=== PATIENT | male | born 1970 | race Caucasian/White ===

== ENCOUNTER → 2016-12-24 | Outpatient (CLI) | payer OTHER | END | disposition home or self-care (01) | LOC: PETCFH 08:45 | PROVIDERS: ATTEND Nurse Practitioner | DX: M25.569 Pain in unspecified knee (principal) | CPT/HCPCS: 78306; A9503 ==

== ENCOUNTER → 2017-01-21 | Outpatient (CLI) | payer OTHER | END | disposition home or self-care (01) | LOC: CFH 10:35 | PROVIDERS: ATTEND Family Medicine | DX: E04.1 Nontoxic single thyroid nodule (principal); E04.9 Nontoxic goiter, unspecified; R22.1 Localized swelling, mass and lump, neck | CPT/HCPCS: 76536 ==